=== PATIENT | female | born 1975 | race Caucasian/White ===

== ENCOUNTER 2017-10-31 12:59 | Emergency (ER) | payer BC ==
[~2017-10-31] VITALS: Ht 157.5 cm; Wt 63.5 kg
[~2017-10-31 12:59] MED LIST: DIAZ10 PO; GABA400 PO; HYDR-2952 PO; IBUP-238 PO; OS-CTAB3 PO; TIZA4 PO
[2017-10-31 13:06] VITALS: BP 119/69; PULSE 100; RESP 20; TEMP 98.4; O2SAT 100
--- NOTE | 2017-10-31 13:46 | RADRPT ---
EXAM DATE/TIME: 10/31/2017 13:30 [place] COMPARISON: No previous studies available for comparison. INDICATIONS : Posterior left knee pain for three weeks. MEDICAL HISTORY : None. SURGICAL HISTORY : None. ENCOUNTER: Initial ACUITY: 3 weeks PAIN SCORE: 10/10 LOCATION: Left posterior knee. FINDINGS: Four view examination of the left knee demonstrates no evidence of fracture or dislocation. Bony min eralization is normal. The articular surfaces are intact. The suprapatellar soft tissues have a nor mal configuration. CONCLUSION: 1. No acute bony abnormality identified. Reji Harvey MD on October 31, 2017 at 13:44 Board Certified Radiologist. This report was verified electronically.
--- NOTE | 2017-10-31 14:38 | PD ---
HPI Chief Complaint: Pain: Acute or Chronic Time Seen by Provider: 14:17 Travel History International Travel<30 days: No Contact w/Intl Traveler<30days: No Traveled to known affect area: No History of Present Illness HPI 42-year-old female presents emergency department complaining of left knee pain that started approximately 2 weeks ago. Patient states that she was working and her pain has increased over the last 2 weeks. States that her knee has been "giving out" and says it is hurting to work with this pain. Patient says that her pain has been gradually worsening over the last several days which is the reason she is here today. Says she has been using ibuprofen 800 mg 3 times a day without significant improvement. She denies fever, chills, chest pain, shortness of breath. She denies trauma to the area. Denies previous injuries. PFSH Past Medical History Arthritis: Yes Blood Disorders: No Anxiety: Yes Depression: No Cancer: No Cardiovascular Problems: No Cerebrovascular Accident: No Diabetes: No Endocrine: No Genitourinary: No Headaches: No Hepatitis: No Hiatal Hernia: No Immune Disorder: No Musculoskeletal: Yes Neurologic: No Psychiatric: No Reproductive: Yes (HYSTERECTOMY) Respiratory: No Migraines: No Seizures: No Thyroid Disease: Yes (nodules) PNEUMOCCOCAL Vaccine (Year): 2 ?: Not LMP: 2000 Past Surgical History Abdominal Surgery: Yes (lap komal,appendectomy) Appendectomy: Yes Cholecystectomy: Yes Gynecologic Surgery: Yes (hysterectomy) Hysterectomy: Yes Pacemaker: No Other Surgery: Yes (RECURRENT GANGLION CYST LEFT WRIST) Social History Alcohol Use: No Tobacco Use: Yes (1/2 PPD) Substance Use: No Allergies-Medications (Allergen,Severity, Reaction): Coded Allergies: fentanyl (Unverified Allergy, Severe, DURAGESIC PATCH - NAUSEA & VOMINTING , 04/08/17) morphine (Unverified Adverse Reaction, Severe, MIGRAINES,N/V, , 04/08/17) Uncoded Allergies: STERIODS (Allergy, Severe, "MAKES ME SWELL", 01/27/12) VERIFIED WITH PATIENT Reported Meds & Prescriptions Reported Meds & Active Scripts Active Voltaren (Diclofenac Sodium) 1 % Gel..gram. 1 Applic TOPICAL Q6HR 7 Days Reported Oscal 500/Vitamin D 200 (Calcium/Vitamin D) 1 Tab Tab 1 Tab PO TID 7 Days Lortab 7.5/500 Tab (Acetaminophen/Hydrocodone Bitart) 7.5 Mg/500 Mg Tab 1 Tab PO Q4HPRN Neurontin (Gabapentin) 400 Mg Cap 400 Mg PO TID Valium (Diazepam) 10 Mg Tab 10 Mg PO BID Zanaflex 4 mg (Tizanidine HCl) 4 Mg Tab 4 Mg PO BID Motrin (Ibuprofen) 800 Mg Tab 800 Mg PO TID Review of Systems Except as stated in HPI: all other systems reviewed are Neg Physical Exam Narrative GENERAL: Well-nourished, well-developed patient. SKIN: Focused skin assessment warm/dry. HEAD: Normocephalic. EYES: No scleral icterus. No injection or drainage. NECK: Supple, trachea midline. No JVD or lymphadenopathy. CARDIOVASCULAR: Regular rate and rhythm without murmurs, gallops, or rubs. RESPIRATORY: Breath sounds equal bilaterally. No accessory muscle use. MUSCULOSKELETAL: No cyanosis, or edema. Left knee-mildly edematous, tender to palpation the medial aspect of the patella in the soft tissue, difficulty with fully extending the knee secondary to pain although is able to perform full extension and flexion. Skin intact. Pulses present. Tender palpation over the posterior knee without obvious mass. BACK: Nontender without obvious deformity. No CVA tenderness. Data Data Last Documented VS Vital Signs Date Time Temp Pulse Resp B/P (MAP) Pulse Ox O2 Delivery O2 Flow Rate FiO2 10/31/17 13:06 98.4 100 20 119/69 (86) 100 Orders Orders Knee, Complete (4vws) (10/31/17 ) Ed Discharge Order (10/31/17 14:38) MDM Medical Decision Making Medical Screen Exam Complete: Yes Emergency Medical Condition: Yes Differential Diagnosis left knee sprain, prepatellar bursitis, knee fracture, Kerr's cyst Narrative Course 42-year-old female presents emergency department complaining of left knee pain that started approximately 2 weeks ago. Patient states that she was working and her pain has increased over the last 2 weeks. States that her knee has been "giving out" and says it is hurting to work with this pain. Patient says that her pain has been gradually worsening over the last several days which is the reason she is here today. Says she has been using ibuprofen 800 mg 3 times a day without significant improvement. She denies fever, chills, chest pain, shortness of breath. She denies trauma to the area. Denies previous injuries. Vitals stable. Physical exam findings consistent with prepatellar bursitis, knee sprain, knee fracture X-rays without acute findings. Advised patient that she should continue the knee brace for comfort. Advised that she should strengthen the muscles around the knee to prevent further injury. Advised she should follow-up with her primary care physician within 2- 3 days. Consider follow-up with an orthopedic physician for further imaging evaluation. Diclofenac topical gel for her pain relief. Diagnosis Primary Impression: Knee sprain Qualified Codes: S83.92XA - Sprain of unspecified site of left knee, initial encounter Additional Impression: Prepatellar bursitis Qualified Codes: M70.42 - Prepatellar bursitis, left knee Referrals: Primary Care Physician Departure Forms: Tests/Procedures, Work Release Enter return to work date: Nov 03, 2017 Additional Instructions: Consider follow up with an orthopedic physician. Use ice or heat for symptom relief. Elevate the joint above the heart to reduce swelling. You may use compression with Kishan wrap or similar to reduce swelling. If symptoms persist or worsen, return to the emergency department. Follow up with your primary care physician within 2 days. Perform exercises to strengthen the muscles around the knee to avoid injury. Scripts Diclofenac Sodium (Voltaren) 1 % Gel..gram. 1 APPLIC TOPICAL Q6HR for Pain Management for 7 Days, TUBE Prov: Shruti Rodrigues 10/31/17 Disposition: 01 DISCHARGE HOME Condition: Stable Shruti Rodrigues Oct 31, 2017 14:38
[2017-10-31] MEDS ORDERED: VOLT1GEL16 TOPICAL (14:45)
== END 2017-10-31 15:40 | disposition home or self-care (01) ==
LOC: NEPA 12:59
DX: S83.92XA Sprain of unspecified site of left knee, initial encounter (principal); M70.42 Prepatellar bursitis, left knee; X58.XXXA Exposure to other specified factors, initial encounter
CPT/HCPCS: 73564; 99283